=== PATIENT | male | born 1995 | race American Indian/Alaskan Native ===

== ENCOUNTER 2018-01-29 13:23 | Emergency (ER) | payer MEDICAID ==
[2018-01-29 14:01] VITALS: BMI 22.3
[2018-01-29 14:04] VITALS: O2SAT 100
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
[2018-01-29] MEDS ORDERED: Naproxen 550 mg Tab PO STA (14:58)
--- NOTE | 2018-01-29 15:02 | RAD ---
Chest x-ray two views History: Right-sided lung pain. Comparison: None available. Findings: Moderate loculated right pleural effusion. Focal consolidative changes within the lateral aspect of the right mid to lower lung zone. Diffuse increased interstitial lung markings in the right lung. Heart size normal limits. Shrapnel and or debris projecting over the right upper abdomen. Degenerative changes in the spine. Impression: Moderate loculated right pleural effusion. Focal consolidative changes within the lateral aspect of the right mid to lower lung zone. Diffuse increased interstitial lung markings in the right lung. Heart size normal limits. Shrapnel and or debris projecting over the right upper abdomen. Degenerative changes in the spine.
[2018-01-29] MEDS ORDERED: Naproxen 550 mg Tab PO ONE (15:07)
[2018-01-29 15:29] VITALS: BP 137/75; PULSE 90; RESP 18; TEMP 98.1
== END 2018-01-29 15:29 | disposition home or self-care (01) ==
LOC: C.ER 13:23
DX: Z48.02 Encounter for removal of sutures (principal); J98.11 Atelectasis

== ENCOUNTER 2018-03-13 10:24 | Emergency (ER) | payer MEDICAID ==
[2018-03-13 10:25] VITALS: BMI 22.3
[2018-03-13 10:34] VITALS: BP 128/76; PULSE 63; RESP 16; TEMP 97.6; O2SAT 100
[2018-03-13] MEDS ORDERED: Albuterol 0.083% Inhal Sol (2.5 mg/3 mL) UD IH STA (11:02)
[2018-03-13] MEDS ORDERED: Albuterol 0.083% Inhal Sol (2.5 mg/3 mL) UD ONE (11:07)
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
--- NOTE | 2018-03-13 12:22 | RAD ---
Date of service: 03/13/2018 HISTORY: Cough COMPARISON: No prior. TECHNIQUE: Chest PA and lateral FINDINGS: LUNGS: Slight elevation of right hemidiaphragm with localized tenting of the lateral aspect of the right hemidiaphragm and adjacent parenchymal scarring right lower lobe there may also be some localized pleural thickening in the right CP angle as well.. PLEURA: No significant pleural effusion identified. No pneumothorax apparent. CARDIOVASCULAR: Normal. OSSEOUS STRUCTURES: No significant abnormalities. VISUALIZED UPPER ABDOMEN: Normal. OTHER FINDINGS: None. IMPRESSION: Slight elevation of right hemidiaphragm with localized tenting of the lateral aspect of the right hemidiaphragm and adjacent parenchymal scarring right lower lobe there may also be some localized pleural thickening in the right CP angle as well..
== END 2018-03-13 11:38 | disposition home or self-care (01) ==
LOC: C.ER 10:24
DX: J06.9 Acute upper respiratory infection, unspecified (principal)

== ENCOUNTER 2018-03-21 05:58 | Emergency (ER) | payer MEDICAID ==
[2018-03-21 05:58] VITALS: BMI 22.3
[2018-03-21 06:18] VITALS: O2SAT 100
[2018-03-21] MEDS ORDERED: Sodium Chloride 0.9% 1,000 ML IV ONE (06:18)
--- NOTE | 2018-03-21 06:19 | C.PDOC ---
Chief Complaint (Nursing): Chest Pain Past Medical History Vital Signs: Last Vital Signs Temp 97.6 F 03/21/18 06:10 Pulse 63 03/21/18 06:10 Resp 18 03/21/18 06:10 BP 150/81 03/21/18 06:10 Pulse Ox 100 03/21/18 06:10 - Social History Hx Alcohol Use: No Hx Substance Use: Yes - Immunization History Hx Tetanus Toxoid Vaccination: Yes Hx Influenza Vaccination: Yes Hx Pneumococcal Vaccination: Yes ED Course And Treatment O2 Sat by Pulse Oximetry: 100 Disposition - Disposition Forms: [employer] (Kyrgyz)
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
[2018-03-21 06:43] LABS: EOS # 0.2 K/uL (0.0-0.7); HEMOGLOBIN 11.9 g/dL (12.0-18.0); LYMPH # 1.3 K/uL (1.0-4.3); LYMPH % 40.3 % (20.0-40.0); MEAN CELL VOLUME 74.2 fL (80.0-94.0); MEAN CORPUSCULAR HEMOGLOBIN 23.7 pg (27.0-31.0); MEAN CORPUSCULAR HGB CONC 31.9 g/dL (33.0-37.0); MEAN PLATELET VOLUME 7.9 fL (7.2-11.7); MONO # 0.4 K/uL (0.0-0.8); MONO % 11.1 % (0.0-10.0); NEUT # 1.4 K/uL (1.8-7.0); NEUT % 41.6 % (50.0-75.0); NRBC % 0.1 % (0.0-2.0); RBC 5.04 Mil/uL (4.40-5.90); RED CELL DISTRIBUTION WIDTH 16.1 % (11.5-14.5); WHITE BLOOD COUNT 3.3 K/uL (4.8-10.8)
[2018-03-21 06:49] LABS: ALB/GLOB RATIO 1.2 (1.0-2.1); ALBUMIN 3.9 g/dL (3.5-5.0); ALT/SGPT 16 U/L (21-72); AST/SGOT 20 U/L (17-59); BLOOD UREA NITROGEN 7 mg/dL (9-20); CALCIUM 9.3 mg/dl (8.6-10.4); GFR NON-AFRICAN AMERICAN > 60
--- NOTE | 2018-03-21 08:49 | RAD ---
HISTORY: Chest pain COMPARISON: 03/13/2018. TECHNIQUE: Chest PA and lateral FINDINGS: LINES AND TUBES: None. LUNG AND PLEURA: The lungs are well inflated and clear. There is scarring in the right lower lobe no pleural effusion or pneumothorax. HEART AND MEDIASTINUM: The heart is not enlarged. The hilar and mediastinal contours are within normal limits. SKELETAL STRUCTURES: The bony structures are within normal limits for the patient's age. VISUALIZED UPPER ABDOMEN: Normal. OTHER FINDINGS: There is chronic elevation of the right hemidiaphragm. There are tiny metallic densities overlying the right upper quadrant. IMPRESSION: No active pulmonary disease. Stable chronic scarring in the right lower lobe.
--- NOTE | 2018-03-21 09:47 | CT ---
Date of service: 03/21/2018 PROCEDURE: CT Chest without contrast HISTORY: right sided chest pain/linear density COMPARISON: Plain radiographs, the most recent from 03/21/2018 TECHNIQUE: Contiguous axial images were obtained through the chest without intravenous contrast enhancement. Sagittal and coronal reconstructions were performed. Radiation dose (DLP): mGy-cm. This CT exam was performed using one or more of the following dose reduction techniques: Automated exposure control, adjustment of the mA and/or kV according to patient size, and/or use of iterative reconstruction technique. FINDINGS: LUNGS: The lungs are well inflated. There is multifocal linear scarring in the right lower lobe. MEDIASTINUM: The aorta is normal in size. No aneurysm. Normal sized heart. Main pulmonary artery unremarkable. No vascular congestion. No lymphadenopathy. PLEURA: There is tiny loculated fluid along the major and minor fissures. No free pleural fluid. No pneumothorax. BONES: No fracture. No destructive lesion. Old deformity in the right lateral 7th rib. UPPER ABDOMEN: Grossly unremarkable. OTHER FINDINGS: There are stable metallic density is along the subcapsular right hepatic lobe. IMPRESSION: No acute findings in the chest. Multifocal linear scarring in the right lower lobe. Tiny loculated fluid along the right major fissure and minor fissure.
[2018-03-21 10:36] VITALS: BP 128/82; PULSE 72; RESP 18; TEMP 98.1
--- NOTE | 2018-03-23 08:43 | CARD ---
APPROVED REPORT Date of service: 03/21/2018 EKG Measurement Heart [id number] <Conclusion> Normal sinus rhythm Voltage criteria for left ventricular hypertrophy T wave abnormality, consider inferior ischemia Abnormal ECG
== END 2018-03-21 10:32 | disposition home or self-care (01) ==
LOC: C.ER 05:58
DX: R07.9 Chest pain, unspecified (principal)
CPT/HCPCS: 71046; 71250; 80053; 84484; 85025; 85378; 93005; 96374; 99283; J1885; J7030

== ENCOUNTER 2018-08-22 03:20 | Emergency (ER) | payer MEDICAID ==
[2018-08-22 03:20] VITALS: BMI 22.3
[2018-08-22 04:08] LABS: EOS # 0.1 K/uL (0.0-0.7); HEMOGLOBIN 13.8 g/dL (12.0-18.0); LYMPH # 1.7 K/uL (1.0-4.3); LYMPH % 48.2 % (20.0-40.0); MEAN CELL VOLUME 81.6 fL (80.0-94.0); MEAN CORPUSCULAR HEMOGLOBIN 25.7 pg (27.0-31.0); MEAN CORPUSCULAR HGB CONC 31.5 g/dL (33.0-37.0); MEAN PLATELET VOLUME 8.6 fL (7.2-11.7); MONO # 0.3 K/uL (0.0-0.8); MONO % 9.9 % (0.0-10.0); NEUT # 1.3 K/uL (1.8-7.0); NEUT % 37.9 % (50.0-75.0); NRBC % 0.1 % (0.0-2.0); RBC 5.35 Mil/uL (4.40-5.90); RED CELL DISTRIBUTION WIDTH 15.6 % (11.5-14.5); WHITE BLOOD COUNT 3.5 K/uL (4.8-10.8)
[2018-08-22 04:11] LABS: SQUAMOUS EPITHIAL < 1 /hpf (0-5); URINE BILIRUBIN NEGATIVE (NEGATIVE); URINE BLOOD NEGATIVE (NEGATIVE); URINE CLARITY Hazy (Clear); URINE COLOR Yellow (YELLOW); URINE GLUCOSE (UA) NORMAL (Normal); URINE LEUKOCYTE ESTERASE NEG Leu/uL (Negative); URINE PROTEIN NEGATIVE (NEGATIVE); URINE UROBILINOGEN NORMAL mg/dL (0.2-1.0)
[2018-08-22 04:22] LABS: ALB/GLOB RATIO 1.3 (1.0-2.1); ALBUMIN 4.4 g/dL (3.5-5.0); BLOOD UREA NITROGEN 11 mg/dL (9-20); CALCIUM 9.1 mg/dl (8.6-10.4); GFR NON-AFRICAN AMERICAN > 60; LIPASE 128 U/L (23-300)
[2018-08-22 04:23] LABS: ALT/SGPT 16 U/L (21-72); AST/SGOT 53 U/L (17-59)
[2018-08-22] MEDS ORDERED: Iodixanol 320 MG/ML 100 ML BOTTLE IV ONE (04:59)
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
[2018-08-22 07:29] VITALS: BP 114/72; PULSE 66; RESP 16; TEMP 97.6; O2SAT 98
--- NOTE | 2018-08-22 09:56 | RAD ---
Date of service: 08/22/2018 HISTORY: chest tightness COMPARISON: 03/21/2018 TECHNIQUE: Chest PA and lateral FINDINGS: LUNGS: No active pulmonary disease. PLEURA: No significant pleural effusion identified. No pneumothorax apparent. CARDIOVASCULAR: No aortic atherosclerotic calcification present. Normal cardiac size. OSSEOUS STRUCTURES: No significant abnormalities. VISUALIZED UPPER ABDOMEN: Few punctate radiopaque densities projecting over the right upper abdomen, not significantly changed. OTHER FINDINGS: None. IMPRESSION: No active disease.
--- NOTE | 2018-08-22 10:20 | CT ---
Date of service: 08/22/2018 PROCEDURE: CT Abdomen and Pelvis with contrast HISTORY: RLQ pain COMPARISON: None available. TECHNIQUE: Contrast dose: 100 mL Visipaque 320 IV Radiation dose: Total exam DLP = 619.78 mGy-cm. This CT exam was performed using one or more of the following dose reduction techniques: Automated exposure control, adjustment of the mA and/or kV according to patient size, and/or use of iterative reconstruction technique. FINDINGS: Examination limited by paucity of intra-abdominal and intrapelvic fat. LOWER THORAX: Right basilar atelectasis. No visible pleural effusion or pneumothorax. LIVER: Unremarkable. GALLBLADDER AND BILE DUCTS: Contracted state of gallbladder limits evaluation. PANCREAS: Unremarkable. SPLEEN: Unremarkable. ADRENALS: Unremarkable. KIDNEYS AND URETERS: The kidneys enhance symmetrically. No hydronephrosis or obstructing calculus identified. VASCULATURE: No aortic aneurysm. No atherosclerotic calcification or mural plaque present. BOWEL: Stomach is nondistended. Lack of oral contrast limits evaluation for bowel pathology. Bowel loops appear within normal limits of caliber without evidence of obstruction. Moderate constipation. Nonspecific small bowel wall thickening. APPENDIX: The appendix is not identified. PERITONEUM: No significant free fluid. No definite free air. LYMPH NODES: No bulky adenopathy identified. BLADDER: Unremarkable. REPRODUCTIVE: Unremarkable. BONES: No acute osseous abnormality is detected. OTHER FINDINGS: None. IMPRESSION: The appendix is not identified. Given limitations of the study, if high clinical index of suspicion suggest further evaluation with oral contrast, correlation with white blood cell count, and physical exam. Moderate constipation. Nonspecific small bowel wall thickening. Enteritis cannot be excluded. Preliminary impression was provided by [employer]. Study marked for PA review.
== END 2018-08-22 07:48 | disposition home or self-care (01) ==
LOC: C.ER 03:20
DX: K52.9 Noninfective gastroenteritis and colitis, unspecified (principal)
CPT/HCPCS: 71046; 74177; 80053; 81001; 83690; 85025; 99284; Q9967

== ENCOUNTER 2018-09-01 09:59 | Emergency (ER) | payer MEDICAID ==
[2018-09-01 09:59] VITALS: BMI 22.3
[2018-09-01 10:31] VITALS: O2SAT 99
[2018-09-01 10:59] VITALS: RESP 17
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
[2018-09-01 11:53] VITALS: BP 106/65; PULSE 69; TEMP 98.4
--- NOTE | 2018-09-01 12:27 | RAD ---
Date of service: 09/01/2018 HISTORY: Cough COMPARISON: 08/22/2018. TECHNIQUE: Chest PA and lateral FINDINGS: LINES AND TUBES: None. LUNG AND PLEURA: The lungs are well inflated and clear. No pleural effusion or pneumothorax. There are stable tiny high attenuation densities in the right lower lobe and right lower lobe scarring. HEART AND MEDIASTINUM: The heart is not enlarged. No aortic atherosclerotic calcifications present. The hilar and mediastinal contours are within normal limits. SKELETAL STRUCTURES: The bony structures are within normal limits for the patient's age. VISUALIZED UPPER ABDOMEN: Normal. OTHER FINDINGS: There is chronic elevation of the right hemidiaphragm. IMPRESSION: No active pulmonary disease.
--- NOTE | 2018-09-04 20:22 | CARD ---
APPROVED REPORT Date of service: 09/01/2018 EKG Measurement Heart [id number] <Conclusion> Normal sinus rhythm Voltage criteria for left ventricular hypertrophy T wave abnormality, consider inferior ischemia Abnormal ECG
== END 2018-09-01 11:51 | disposition home or self-care (01) ==
LOC: C.ER 09:59
DX: B34.9 Viral infection, unspecified (principal)